=== PATIENT | female | born 1985 | race Caucasian/White ===

== ENCOUNTER 2019-03-11 13:55 | Inpatient (IN) ==
[2019-03-11] MEDS ORDERED: LACTATED RINGERS 1,000 ML IV ONE (14:56)
[2019-03-11] MEDS ORDERED: ONDANSETRON 4 MG/2 ML VIAL IV ONE (14:57)
[2019-03-11 15:43] LABS: Basophils % 0.3 % (0.0-0.8); Eosinophils # 0.1 10*3/uL (0.0-0.87); Eosinophils % 0.6 % (0.00-10.9); Hemoglobin 14.1 GM/DL (12.0-16.0); Immature Granulocytes % 0.4 %; Immature Granulocytes Absolute 0.07 #; Lymphocytes # 1.4 10*3/uL (1.4-4.0); Lymphocytes % 8.8 % (21.3-54.2); Mean Corpuscular HGB Conc 32.8 GM/DL (32-36); Mean Corpuscular Volume 86.5 FL (87-102); Mean Platelet Volume 10.3 FL (9.6-12.0); Monocytes % 4.2 % (1.7-12.7); Neutrophils % 85.7 % (38.7-73.9); Platelet Count 435 T/CUMM (130-400); Red Blood Count 4.97 MC/CUMM (3.8-5.5); Red Cell Distribution Width 14.3 % (9.3-17.3)
[2019-03-11] MEDS ORDERED: PROMETHAZINE INJ 25 MG in SODIUM CHLORIDE 0.9% 50 ML IV STA (15:50)
[2019-03-11 15:52] LABS: Apearance,Urine CLEAR (Clear); Bacteria,Urine Occasional /HPF (Few); Bilirubin,Urine Negative (Negative); Blood, Urine Negative (Negative); Glucose,Urine (UA) Negative (Negative); Ketones,Urine 20 mg/dL (Negative); Mucus,Urine Few /LPF (Occasional); Nitrite,Urine Negative (Negative); Protein,Urine Negative; RBC,Urine 5 /HPF (0-4); Squamous Epithelial Cell,Urine Occasional /HPF (0-10); Urine Color Yellow (Yellow); Urine Specific Gravity 1.018 (1.001-1.035); Urine Urobilinogen < 2.0 EU/DL (0.2-1.0); WBC,Urine 4 /HPF (0-6)
[2019-03-11] MEDS ORDERED: PROMETHAZINE 25 MG/1 ML VIAL ONE (15:52)
[2019-03-11 16:06] LABS: Albumin 3.7 G/DL (3.4-5.0); Bilirubin,Total 0.4 MG/DL (0.2-1.0); Osmolality,Calculated 282.1 MOS/KG (273-304); Total Protein 7.5 G/DL (6.4-8.3)
[2019-03-11] MEDS ORDERED: ACETAMINOPHEN 325 MG TABLET PO PRN (18:22)
[2019-03-11] MEDS ORDERED: PIPERACILLIN/TAZOBACTAM 3,375 MG in SODIUM CHLORIDE 0.9% 100 ML IV STA (18:23)
[2019-03-11] MEDS ORDERED: ONDANSETRON 4 MG/2 ML VIAL IV STA (18:23)
[2019-03-11] MEDS ORDERED: HYDROmorphone 2 MG/1 ML VIAL IV STA (18:23)
[2019-03-11] MEDS: LACTATED RINGERS 1,000 ML IV SCH (20:50)
[2019-03-12] MEDS: ONDANSETRON 4 MG/2 ML VIAL IV PRN ×4 (00:33→21:38)
[2019-03-12] MEDS ORDERED: MORPHINE 4 MG/1 ML VIAL IV PRN (00:47)
[2019-03-12] MEDS: PIPERACILLIN/TAZOBACTAM 3,375 MG in SODIUM CHLORIDE 0.9% 100 ML IV SCH ×3 (03:39→18:25)
[2019-03-12 05:15] LABS: Basophils % 0.2 % (0.0-0.8); Eosinophils % 0.1 % (0.00-10.9); Hematocrit 42.6 VOL% (35.7-47.0); Hemoglobin 13.7 GM/DL (12.0-16.0); Immature Granulocytes % 0.8 %; Immature Granulocytes Absolute 0.14 #; Lymphocytes # 1.3 10*3/uL (1.4-4.0); Lymphocytes % 7.2 % (21.3-54.2); Mean Corpuscular HGB Conc 32.2 GM/DL (32-36); Mean Corpuscular Volume 87.5 FL (87-102); Neutrophils % 87.7 % (38.7-73.9); Platelet Count 397 T/CUMM (130-400); Red Blood Count 4.87 MC/CUMM (3.8-5.5); Red Cell Distribution Width 14.2 % (9.3-17.3)
[2019-03-12 05:34] LABS: Calcium 8.8 MG/DL (8.5-10.1); Osmolality,Calculated 273.7 MOS/KG (273-304)
[2019-03-12 06:28] LABS: Anisocytosis 1+; Band Neutrophils 3 % (0-10); Eosinophils 1 % (0-10); Lymphocytes 6 % (20-55); Segmented Neutrophils 89 % (50-85); Total Cells Counted 100
[2019-03-12 06:29] LABS: Platelet Estimate Adequate
[2019-03-12] MEDS: POTASSIUM CHLORIDE RIDER 10 MEQ in PREMIX 1 EACH IV PRN ×5 (06:31→20:23)
[2019-03-12] MEDS ORDERED: MIDAZOLAM 2 MG/2 ML VIAL IV ONE (07:35)
[2019-03-12] MEDS ORDERED: MIDAZOLAM 2 MG/2 ML VIAL ONE ×2 (07:37→09:37)
[2019-03-12] MEDS: LACTATED RINGERS 1,000 ML IV SCH ×4 (07:50→23:10)
[2019-03-12] MEDS ORDERED: TISSUE ADHESIVE 1 EACH APPLICATOR TOP ONE (07:59)
[2019-03-12] MEDS ORDERED: LIDOCAINE 1%/EPI INJ 20 ML VIAL ONE (08:00)
[2019-03-12] MEDS ORDERED: BUPIVACAINE MPF 0.25% /EPI 30 ML VIAL ONE (08:00)
[2019-03-12] MEDS: PANTOPRAZOLE 40 MG TABLET PO SCH (08:45)
[2019-03-12] MEDS ORDERED: KETOROLAC 10 MG TABLET PO PRN (09:26)
[2019-03-12] MEDS ORDERED: ALBUTEROL/IPRATROPIUM 3 ML NEB RESP TX PRN (09:26)
[2019-03-12] MEDS ORDERED: BISACODYL 5 MG TABLET PO PRN (09:26)
[2019-03-12] MEDS ORDERED: PROPOFOL 200 MG/20 ML VIAL IV ONE (09:36)
[2019-03-12] MEDS ORDERED: SEVOFLURANE 1 UNIT/15 MINUTE INH ONE (09:37)
[2019-03-12] MEDS ORDERED: ONDANSETRON 4 MG/2 ML VIAL ONE (09:37)
[2019-03-12] MEDS ORDERED: DEXAMETHASONE 4 MG/1 ML VIAL ONE (09:37)
[2019-03-12] MEDS ORDERED: fentaNYL 100 MCG/2 ML VIAL ONE ×2 (09:37→09:38)
[2019-03-12] MEDS ORDERED: KETOROLAC 30 MG/1 ML VIAL ONE (09:37)
[2019-03-12] MEDS ORDERED: SUCCINYLCHOLINE 200 MG/10 ML VIAL ONE (09:38)
[2019-03-12] MEDS ORDERED: ROCURONIUM 100 MG/10 ML VIAL IV ONE (09:38)
[2019-03-12] MEDS ORDERED: LACTATED RINGERS 1,000 ML IV ONE (09:38)
[2019-03-12] MEDS ORDERED: NEOSTIGMINE 10 MG/10 ML VIAL ONE (09:38)
[2019-03-12] MEDS ORDERED: PHENYLEPHRINE 1 MG/10 ML SYRINGE IV ONE (09:38)
[2019-03-12] MEDS ORDERED: ACETAMINOPHEN 1,000 MG/100 ML VIAL IV ONE (09:38)
[2019-03-12] MEDS ORDERED: GLYCOPYRROLATE 0.4 MG/2 ML VIAL ONE (09:38)
[2019-03-12] MEDS: MORPHINE 4 MG/1 ML VIAL IV PRN (21:39)
[2019-03-13] MEDS: POTASSIUM CHLORIDE RIDER 10 MEQ in PREMIX 1 EACH IV PRN ×3 (00:15→02:19)
[2019-03-13] MEDS: LACTATED RINGERS 1,000 ML IV SCH ×3 (02:32→16:45)
[2019-03-13] MEDS: PIPERACILLIN/TAZOBACTAM 3,375 MG in SODIUM CHLORIDE 0.9% 100 ML IV SCH ×3 (03:18→18:05)
[2019-03-13] MEDS: ONDANSETRON 4 MG/2 ML VIAL IV PRN (03:21)
[2019-03-13] MEDS: MORPHINE 4 MG/1 ML VIAL IV PRN (03:22)
[2019-03-13 04:49] LABS: Basophils % 0.1 % (0.0-0.8); Eosinophils % 0.1 % (0.00-10.9); Hemoglobin 12.1 GM/DL (12.0-16.0); Immature Granulocytes % 0.6 %; Lymphocytes # 2.7 10*3/uL (1.4-4.0); Lymphocytes % 16.1 % (21.3-54.2); Mean Corpuscular HGB Conc 32.7 GM/DL (32-36); Mean Corpuscular Volume 87.9 FL (87-102); Mean Platelet Volume 10.2 FL (9.6-12.0); Monocytes % 7.1 % (1.7-12.7); Platelet Count 370 T/CUMM (130-400); Red Blood Count 4.21 MC/CUMM (3.8-5.5); Red Cell Distribution Width 14.6 % (9.3-17.3)
[2019-03-13 05:49] LABS: Albumin 2.4 G/DL (3.4-5.0); Bilirubin,Total 1.1 MG/DL (0.2-1.0); Calcium 8.1 MG/DL (8.5-10.1); Osmolality,Calculated 276.4 MOS/KG (273-304)
[2019-03-13] MEDS: PANTOPRAZOLE 40 MG TABLET PO SCH (08:15)
[2019-03-14] MEDS: LACTATED RINGERS 1,000 ML IV SCH ×3 (02:30→10:30)
[2019-03-14] MEDS: PIPERACILLIN/TAZOBACTAM 3,375 MG in SODIUM CHLORIDE 0.9% 100 ML IV SCH ×2 (03:01→11:00)
[2019-03-14 05:48] LABS: Basophils # 0.1 10*3/uL (0.0-0.2); Basophils % 0.5 % (0.0-0.8); Eosinophils # 0.2 10*3/uL (0.0-0.87); Eosinophils % 2.3 % (0.00-10.9); Hematocrit 34.1 VOL% (35.7-47.0); Hemoglobin 11.1 GM/DL (12.0-16.0); Immature Granulocytes % 0.4 %; Immature Granulocytes Absolute 0.04 #; Lymphocytes # 3.7 10*3/uL (1.4-4.0); Lymphocytes % 39.3 % (21.3-54.2); Mean Corpuscular HGB Conc 32.6 GM/DL (32-36); Mean Corpuscular Volume 88.1 FL (87-102); Mean Platelet Volume 10.5 FL (9.6-12.0); Monocytes % 7.3 % (1.7-12.7); Neutrophils % 50.2 % (38.7-73.9); Platelet Count 310 T/CUMM (130-400); Red Blood Count 3.87 MC/CUMM (3.8-5.5); Red Cell Distribution Width 14.6 % (9.3-17.3); White Blood Count 9.3 T/CUMM (4-12)
[2019-03-14 06:12] LABS: Albumin 2.5 G/DL (3.4-5.0); Bilirubin,Total 0.8 MG/DL (0.2-1.0); Calcium 7.8 MG/DL (8.5-10.1); Osmolality,Calculated 280.1 MOS/KG (273-304); Total Protein 5.2 G/DL (6.4-8.3)
[2019-03-14] MEDS: POTASSIUM CHLORIDE RIDER 10 MEQ in PREMIX 1 EACH IV PRN ×2 (07:04→08:55)
[2019-03-14] MEDS: ONDANSETRON 4 MG/2 ML VIAL IV PRN (08:06)
[2019-03-14] MEDS: PANTOPRAZOLE 40 MG TABLET PO SCH (08:54)
[2019-03-14 11:14] VITALS: BP 100/58
== END 2019-03-14 12:40 | disposition home or self-care (01) | DRG 343 ==
LOC: N.ED 13:55 → N.EDINP 18:22 → N.3E 19:12
PROVIDERS: ADMIT Surgery; ATTEND Surgery

== ENCOUNTER 2019-09-18 03:02 | Observation (INO) ==
[2019-09-18] MEDS ORDERED: PANTOPRAZOLE 40 MG VIAL IV STA (03:31)
[2019-09-18] MEDS ORDERED: HYDROmorphone 2 MG/1 ML VIAL IV STA (03:31)
[2019-09-18] MEDS ORDERED: SODIUM CHLORIDE 0.9% 1,000 ML IV STA (03:31)
[2019-09-18] MEDS ORDERED: ONDANSETRON 4 MG/2 ML VIAL IV STA ×2 (03:31→09:50)
[2019-09-18 03:49] LABS: Basophils # 0.1 10*3/uL (0.0-0.2); Basophils % 0.4 % (0.0-0.8); Eosinophils # 0.1 10*3/uL (0.0-0.87); Eosinophils % 0.7 % (0.00-10.9); Hematocrit 41.1 VOL% (35.7-47.0); Hemoglobin 13.4 GM/DL (12.0-16.0); Immature Granulocytes % 0.4 %; Immature Granulocytes Absolute 0.05 #; Lymphocytes # 1.7 10*3/uL (1.4-4.0); Lymphocytes % 12.8 % (21.3-54.2); Mean Corpuscular HGB Conc 32.6 GM/DL (32-36); Mean Corpuscular Volume 85.4 FL (87-102); Mean Platelet Volume 9.9 FL (9.6-12.0); Monocytes % 4.3 % (1.7-12.7); Neutrophils % 81.4 % (38.7-73.9); Platelet Count 407 T/CUMM (130-400); Red Blood Count 4.81 MC/CUMM (3.8-5.5); Red Cell Distribution Width 13.7 % (9.3-17.3); White Blood Count 13.6 T/CUMM (4-12)
[2019-09-18 04:27] LABS: Apearance,Urine CLEAR (Clear); Bilirubin,Urine Negative (Negative); Blood, Urine Negative (Negative); Glucose,Urine (UA) 50 mg/dL (Negative); Ketones,Urine 80 mg/dL (Negative); Mucus,Urine Few /LPF (Occasional); Nitrite,Urine Negative (Negative); Protein,Urine 30 MG/DL; RBC,Urine 5 /HPF (0-4); Squamous Epithelial Cell,Urine Occasional /HPF (0-10); Urine Color Yellow (Yellow); Urine Specific Gravity 1.028 (1.001-1.035); Urine Urobilinogen < 2.0 EU/DL (0.2-1.0); WBC,Urine 6 /HPF (0-6)
[2019-09-18] MEDS ORDERED: cefTRIAXone 1,000 MG in SODIUM CHLORIDE 0.9% 100 ML IV STA (04:34)
[2019-09-18 04:53] LABS: Albumin 3.4 G/DL (3.4-5.0); Bilirubin,Total 0.4 MG/DL (0.2-1.0); Calcium 8.2 MG/DL (8.5-10.1); Total Protein 6.9 G/DL (6.4-8.3)
[2019-09-18] MEDS ORDERED: PROMETHAZINE 25 MG/1 ML VIAL ONE (06:09)
[2019-09-18] MEDS ORDERED: PROMETHAZINE 25 MG/1 ML VIAL IM STA (06:26)
[2019-09-18] MEDS ORDERED: ACETAMINOPHEN 325 MG TABLET PO PRN (07:34)
[2019-09-18] MEDS ORDERED: METOCLOPRAMIDE 10 MG/2 ML VIAL IV PRN (07:34)
[2019-09-18] MEDS ORDERED: MAGNESIUM SULF RIDER 2 GM in PREMIX 1 EACH IV PRN (07:38)
[2019-09-18] MEDS ORDERED: MAGNESIUM SULF RIDER 4 GM in PREMIX 1 EACH IV PRN (07:38)
[2019-09-18] MEDS ORDERED: ENOXAPARIN 40 MG/0.4 ML SYRINGE SUBCUT SCH (08:00)
[2019-09-18] MEDS ORDERED: PANTOPRAZOLE 40 MG TABLET PO SCH (09:00)
[2019-09-18] MEDS: ONDANSETRON 4 MG/2 ML VIAL IV PRN ×4 (10:04→21:28)
[2019-09-18 11:46] LABS: Barbiturates Screen,Urine Negative (Negative); Benzodiazepines Screen,Urine Negative (Negative); Cannabinoid Screen,Urine Positive (Negative); Opiate Screen,Urine Negative (Negative); Phencyclidine Screen,Urine Negative (Negative)
[2019-09-18] MEDS: SODIUM CHLOR 0.9% KCL 20 MEQ 20 MEQ/1,000 ML BAG IV SCH (12:35)
[2019-09-19] MEDS: SODIUM CHLOR 0.9% KCL 20 MEQ 20 MEQ/1,000 ML BAG IV SCH ×3 (00:54→08:57)
[2019-09-19 06:37] LABS: Basophils % 0.2 % (0.0-0.8); Eosinophils % 0.2 % (0.00-10.9); Hematocrit 39.1 VOL% (35.7-47.0); Hemoglobin 12.4 GM/DL (12.0-16.0); Immature Granulocytes % 0.7 %; Immature Granulocytes Absolute 0.11 #; Lymphocytes # 2.5 10*3/uL (1.4-4.0); Lymphocytes % 15.2 % (21.3-54.2); Mean Corpuscular HGB Conc 31.7 GM/DL (32-36); Mean Corpuscular Volume 86.9 FL (87-102); Mean Platelet Volume 10.5 FL (9.6-12.0); Monocytes % 7.5 % (1.7-12.7); Neutrophils % 76.2 % (38.7-73.9); Platelet Count 376 T/CUMM (130-400); Red Cell Distribution Width 14.3 % (9.3-17.3); White Blood Count 16.4 T/CUMM (4-12)
[2019-09-19] MEDS: ONDANSETRON 4 MG/2 ML VIAL IV PRN (06:43)
[2019-09-19 07:11] LABS: Albumin 2.8 G/DL (3.4-5.0); Bilirubin,Total 0.7 MG/DL (0.2-1.0); Calcium 7.6 MG/DL (8.5-10.1); Osmolality,Calculated 271.7 MOS/KG (273-304); Total Protein 6.4 G/DL (6.4-8.3)
[2019-09-19] MEDS ORDERED: PANTOPRAZOLE 40 MG TABLET PO SCH (09:00)
[2019-09-19 12:21] VITALS: BP 104/61
== END 2019-09-19 14:15 | disposition home or self-care (01) ==
LOC: N.EDINP 03:02 → N.ED 03:02 → SUATTDRO 07:34 → N.2W 10:14
PROVIDERS: ADMIT Internal Medicine; ATTEND Internal Medicine

== ENCOUNTER 2020-02-03 16:29 | Observation (INO) ==
[2020-02-03] MEDS ORDERED: SODIUM CHLORIDE 0.9% 1,000 ML IV STA (17:02)
[2020-02-03] MEDS ORDERED: ONDANSETRON 4 MG/2 ML VIAL IV STA (17:02)
[2020-02-03] MEDS ORDERED: HYDROmorphone 2 MG/1 ML VIAL IV STA (17:02)
[2020-02-03 17:43] LABS: Basophils % 0.2 % (0.0-0.8); Eosinophils # 0.1 10*3/uL (0.0-0.87); Eosinophils % 0.3 % (0.00-10.9); Hematocrit 43.8 VOL% (35.7-47.0); Hemoglobin 14.4 GM/DL (12.0-16.0); Immature Granulocytes % 0.6 %; Lymphocytes # 2.3 10*3/uL (1.4-4.0); Mean Corpuscular HGB Conc 32.9 GM/DL (32-36); Mean Corpuscular Volume 83.6 FL (87-102); Mean Platelet Volume 9.4 FL (9.6-12.0); Monocytes % 7.7 % (1.7-12.7); Neutrophils % 78.2 % (38.7-73.9); Platelet Count 580 T/CUMM (130-400); Red Blood Count 5.24 MC/CUMM (3.8-5.5); White Blood Count 17.9 T/CUMM (4-12)
[2020-02-03 18:05] LABS: Albumin 3.8 G/DL (3.4-5.0); Bilirubin,Total 0.8 MG/DL (0.2-1.0); Calcium 9.6 MG/DL (8.5-10.1); Osmolality,Calculated 268.1 MOS/KG (273-304); Total Protein 7.7 G/DL (6.4-8.3)
[2020-02-03 18:28] LABS: Apearance,Urine Slightly Hazy (Clear); Bilirubin,Urine Negative (Negative); Blood, Urine Negative (Negative); Glucose,Urine (UA) Negative (Negative); Ketones,Urine 20 mg/dL (Negative); Mucus,Urine Many /LPF (Occasional); Nitrite,Urine Negative (Negative); Protein,Urine 30 MG/DL; RBC,Urine 3 /HPF (0-4); Squamous Epithelial Cell,Urine Occasional /HPF (0-10); Urine Color Amber (Yellow); Urine Specific Gravity 1.027 (1.001-1.035); WBC,Urine 10 /HPF (0-6)
[2020-02-03] MEDS ORDERED: cefTRIAXone 1,000 MG in SODIUM CHLORIDE 0.9% 100 ML IV STA (18:53)
[2020-02-03] MEDS ORDERED: POTASSIUM CHLORIDE 20 MEQ TABLET PO STA (18:54)
[2020-02-03] MEDS ORDERED: PANTOPRAZOLE 40 MG VIAL IV ONE (22:42)
[2020-02-03] MEDS ORDERED: MAGNESIUM SULF RIDER 2 GM in PREMIX 1 EACH IV PRN (22:42)
[2020-02-03] MEDS ORDERED: MAGNESIUM SULF RIDER 4 GM in PREMIX 1 EACH IV PRN (22:42)
[2020-02-03] MEDS ORDERED: ONDANSETRON 4 MG/2 ML VIAL IV PRN (22:42)
[2020-02-03] MEDS ORDERED: POTASSIUM CHLORIDE RIDER 10 MEQ in PREMIX 1 EACH IV PRN (22:42)
[2020-02-03] MEDS: SODIUM CHLORIDE 0.9% 1,000 ML IV SCH (23:12)
[2020-02-03] MEDS: PROMETHAZINE INJ 25 MG in SODIUM CHLORIDE 0.9% 50 ML IV PRN (23:23)
[2020-02-03] MEDS: HYDROmorphone 2 MG/1 ML VIAL IV PRN (23:28)
[2020-02-04 05:14] LABS: Basophils # 0.1 10*3/uL (0.0-0.2); Basophils % 0.5 % (0.0-0.8); Eosinophils # 0.1 10*3/uL (0.0-0.87); Eosinophils % 0.8 % (0.00-10.9); Hematocrit 38.9 VOL% (35.7-47.0); Hemoglobin 12.6 GM/DL (12.0-16.0); Immature Granulocytes % 0.5 %; Immature Granulocytes Absolute 0.06 #; Lymphocytes # 4.3 10*3/uL (1.4-4.0); Lymphocytes % 34.6 % (21.3-54.2); Mean Corpuscular HGB Conc 32.4 GM/DL (32-36); Mean Corpuscular Volume 84.7 FL (87-102); Mean Platelet Volume 10.1 FL (9.6-12.0); Monocytes % 9.2 % (1.7-12.7); Neutrophils % 54.4 % (38.7-73.9); Platelet Count 410 T/CUMM (130-400); Red Blood Count 4.59 MC/CUMM (3.8-5.5); Red Cell Distribution Width 14.3 % (9.3-17.3); White Blood Count 12.5 T/CUMM (4-12)
[2020-02-04 05:29] LABS: Calcium 8.3 MG/DL (8.5-10.1); Osmolality,Calculated 278.3 MOS/KG (273-304)
[2020-02-04] MEDS: SODIUM CHLORIDE 0.9% 1,000 ML IV SCH ×3 (07:12→22:04)
[2020-02-04] MEDS: PROMETHAZINE INJ 25 MG in SODIUM CHLORIDE 0.9% 50 ML IV PRN ×2 (07:55→22:02)
[2020-02-04] MEDS: PANTOPRAZOLE 40 MG VIAL IV SCH (07:59)
[2020-02-04] MEDS ORDERED: propofoL 200 MG/20 ML VIAL IV ONE (09:00)
[2020-02-04] MEDS ORDERED: LIDOCAINE 2% 5 ML VIAL ONE (09:00)
[2020-02-04] MEDS: HYDROmorphone 2 MG/1 ML VIAL IV PRN ×2 (09:11→22:03)
[2020-02-04] MEDS ORDERED: LACTATED RINGERS 1,000 ML IV SCH (10:30)
[2020-02-04] MEDS ORDERED: cefTRIAXone 1,000 MG in SYRINGE 1 EACH IV SCH (18:00)
[2020-02-04] MEDS: POTASSIUM CHLORIDE 20 MEQ TABLET PO PRN ×2 (18:29→21:16)
[2020-02-05] MEDS: SODIUM CHLORIDE 0.9% 1,000 ML IV SCH (06:11)
[2020-02-05] MEDS: PANTOPRAZOLE 40 MG VIAL IV SCH (09:08)
[2020-02-05 09:22] VITALS: BP 111/72
== END 2020-02-05 12:19 | disposition home or self-care (01) ==
LOC: N.ED 16:29 → N.EDINP 16:29 → N.TELES 22:16
PROVIDERS: ADMIT Emergency Medicine; ATTEND Emergency Medicine

== ENCOUNTER 2020-02-11 09:44 | Observation (INO) ==
[2020-02-11] MEDS ORDERED: DIAZEPAM 5 MG TABLET PO ONE (10:10)
[2020-02-11] MEDS ORDERED: FAMOTIDINE 20 MG TABLET PO ONE (10:10)
[2020-02-11] MEDS ORDERED: DIAZEPAM 5 MG TABLET ONE (10:20)
[2020-02-11] MEDS ORDERED: FAMOTIDINE 20 MG TABLET ONE (10:20)
[2020-02-11] MEDS: LACTATED RINGERS 1,000 ML IV SCH ×2 (10:25→16:17)
[2020-02-11] MEDS ORDERED: TISSUE ADHESIVE 1 EACH APPLICATOR TOP ONE ×2 (11:52→15:09)
[2020-02-11] MEDS ORDERED: BUPIVACAINE 0.25% /EPI 10 ML VIAL ONE (11:52)
[2020-02-11] MEDS ORDERED: LIDOCAINE 1%/EPI INJ 20 ML VIAL ONE (11:52)
[2020-02-11] MEDS ORDERED: ceFAZolin 1,000 MG VIAL ONE (12:44)
[2020-02-11] MEDS ORDERED: BUPIVACAINE MPF 0.25% 30 ML VIAL ONE (15:11)
[2020-02-11] MEDS ORDERED: LIDOCAINE 2% 5 ML VIAL ONE (15:30)
[2020-02-11] MEDS ORDERED: SEVOFLURANE 1 UNIT/15 MINUTE INH ONE (15:30)
[2020-02-11] MEDS ORDERED: MIDAZOLAM 2 MG/2 ML VIAL ONE (15:30)
[2020-02-11] MEDS ORDERED: propofoL 200 MG/20 ML VIAL IV ONE (15:30)
[2020-02-11] MEDS ORDERED: PROMETHAZINE 25 MG/1 ML VIAL ONE (15:31)
[2020-02-11] MEDS ORDERED: fentaNYL 100 MCG/2 ML VIAL ONE ×2 (15:31)
[2020-02-11] MEDS ORDERED: PHENYLEPHRINE 1 MG/10 ML SYRINGE IV ONE (15:32)
[2020-02-11] MEDS ORDERED: GLYCOPYRROLATE 0.4 MG/2 ML VIAL ONE (15:32)
[2020-02-11] MEDS ORDERED: ONDANSETRON 4 MG/2 ML VIAL ONE ×2 (15:32→16:04)
[2020-02-11] MEDS ORDERED: DEXAMETHASONE 4 MG/1 ML VIAL ONE (15:32)
[2020-02-11] MEDS ORDERED: NEOSTIGMINE 10 MG/10 ML VIAL ONE (15:32)
[2020-02-11] MEDS ORDERED: LACTATED RINGERS 1,000 ML IV ONE (15:32)
[2020-02-11] MEDS ORDERED: KETOROLAC 30 MG/1 ML VIAL ONE (15:32)
[2020-02-11] MEDS ORDERED: ROCURONIUM 100 MG/10 ML VIAL IV ONE (15:32)
[2020-02-11] MEDS ORDERED: HYDROmorphone 2 MG/1 ML VIAL IV PRN (16:10)
[2020-02-11] MEDS ORDERED: ONDANSETRON 4 MG/2 ML VIAL IV PRN (16:10)
[2020-02-11] MEDS ORDERED: HYDROmorphone 2 MG/1 ML VIAL ONE (16:12)
[2020-02-11] MEDS ORDERED: SCOPOLAMINE 1.5 MG PATCH TRANSDERM ONE ×2 (17:04→17:10)
[2020-02-11] MEDS ORDERED: PROMETHAZINE INJ 25 MG in SODIUM CHLORIDE 0.9% 50 ML IV PRN (18:23)
[2020-02-11] MEDS ORDERED: DEXT 5% NACL 0.45% KCL 20 MEQ 20 MEQ/1,000 ML BAG IV SCH ×2 (18:30→19:30)
[2020-02-11] MEDS ORDERED: diphenhydrAMINE 50 MG/1 ML VIAL IV ONE (18:35)
[2020-02-11] MEDS ORDERED: diphenhydrAMINE 50 MG/1 ML VIAL ONE (18:39)
[2020-02-11] MEDS: ONDANSETRON 4 MG/2 ML VIAL IV PRN (19:41)
[2020-02-11] MEDS: PROMETHAZINE INJ 25 MG in SODIUM CHLORIDE 0.9% 50 ML IV PRN (23:00)
[2020-02-12] MEDS: ONDANSETRON 4 MG/2 ML VIAL IV PRN ×3 (04:54→22:09)
[2020-02-12] MEDS: MORPHINE 4 MG/1 ML VIAL IV PRN ×4 (05:01→22:10)
[2020-02-12] MEDS: PROMETHAZINE INJ 25 MG in SODIUM CHLORIDE 0.9% 50 ML IV PRN ×2 (07:24→16:48)
[2020-02-12] MEDS: DEXTROSE 5% NACL 0.45% 1,000 ML IV SCH ×2 (11:19→20:00)
[2020-02-13] MEDS: DEXTROSE 5% NACL 0.45% 1,000 ML IV SCH ×3 (02:36→18:38)
[2020-02-13] MEDS: MORPHINE 4 MG/1 ML VIAL IV PRN ×2 (03:09→11:27)
[2020-02-13] MEDS: ONDANSETRON 4 MG/2 ML VIAL IV PRN ×4 (03:09→21:02)
[2020-02-14] MEDS: PROMETHAZINE INJ 25 MG in SODIUM CHLORIDE 0.9% 50 ML IV PRN ×2 (00:19→13:22)
[2020-02-14] MEDS: MORPHINE 4 MG/1 ML VIAL IV PRN (00:21)
[2020-02-14] MEDS: DEXTROSE 5% NACL 0.45% 1,000 ML IV SCH ×2 (00:22→19:32)
[2020-02-14 06:26] LABS: Basophils # 0.1 10*3/uL (0.0-0.2); Basophils % 0.3 % (0.0-0.8); Eosinophils # 0.2 10*3/uL (0.0-0.87); Eosinophils % 1.3 % (0.00-10.9); Hematocrit 39.4 VOL% (35.7-47.0); Immature Granulocytes % 0.5 %; Immature Granulocytes Absolute 0.07 #; Lymphocytes # 2.2 10*3/uL (1.4-4.0); Lymphocytes % 15.3 % (21.3-54.2); Mean Corpuscular Volume 82.8 FL (87-102); Mean Platelet Volume 9.7 FL (9.6-12.0); Monocytes % 7.5 % (1.7-12.7); Neutrophils % 75.1 % (38.7-73.9); Platelet Count 397 T/CUMM (130-400); Red Blood Count 4.76 MC/CUMM (3.8-5.5); Red Cell Distribution Width 13.9 % (9.3-17.3); White Blood Count 14.3 T/CUMM (4-12)
[2020-02-14 06:49] LABS: Calcium 8.6 MG/DL (8.5-10.1); Osmolality,Calculated 266.2 MOS/KG (273-304)
[2020-02-14] MEDS: DEXT 5% NACL 0.45% KCL 20 MEQ 20 MEQ/1,000 ML BAG IV SCH (07:50)
[2020-02-14] MEDS: POTASSIUM CHLORIDE RIDER 10 MEQ in PREMIX 1 EACH IV PRN ×5 (07:59→19:30)
[2020-02-14] MEDS ORDERED: METOCLOPRAMIDE 10 MG/2 ML VIAL IV SCH (12:00)
[2020-02-14] MEDS: ONDANSETRON 4 MG/2 ML VIAL IV PRN (15:23)
[2020-02-14] MEDS: PANTOPRAZOLE 40 MG VIAL IV SCH ×2 (16:12→20:31)
[2020-02-14] MEDS: PROMETHAZINE INJ 25 MG in SODIUM CHLORIDE 0.9% 50 ML IV SCH ×2 (18:37→21:34)
[2020-02-14] MEDS: HYDROmorphone 2 MG/1 ML VIAL IV PRN (20:29)
[2020-02-15] MEDS: DEXT 5% NACL 0.45% KCL 20 MEQ 20 MEQ/1,000 ML BAG IV SCH (00:50)
[2020-02-15] MEDS: POTASSIUM CHLORIDE RIDER 10 MEQ in PREMIX 1 EACH IV PRN ×8 (00:52→18:37)
[2020-02-15] MEDS: PROMETHAZINE INJ 25 MG in SODIUM CHLORIDE 0.9% 50 ML IV SCH ×2 (02:54→06:22)
[2020-02-15] MEDS: PANTOPRAZOLE 40 MG VIAL IV SCH (09:04)
[2020-02-15] MEDS: PANTOPRAZOLE 40 MG TABLET PO SCH (18:37)
[2020-02-15] MEDS: ONDANSETRON 4 MG/2 ML VIAL IV PRN (21:46)
[2020-02-15] MEDS: HYDROmorphone 2 MG/1 ML VIAL IV PRN (21:47)
[2020-02-16] MEDS: POTASSIUM CHLORIDE RIDER 10 MEQ in PREMIX 1 EACH IV PRN ×5 (00:03→10:09)
[2020-02-16] MEDS: DEXT 5% NACL 0.45% KCL 20 MEQ 20 MEQ/1,000 ML BAG IV SCH ×2 (00:05→06:32)
[2020-02-16 06:02] LABS: Basophils # 0.1 10*3/uL (0.0-0.2); Basophils % 0.6 % (0.0-0.8); Eosinophils # 1.2 10*3/uL (0.0-0.87); Eosinophils % 10.1 % (0.00-10.9); Hematocrit 39.4 VOL% (35.7-47.0); Hemoglobin 12.7 GM/DL (12.0-16.0); Immature Granulocytes % 0.5 %; Immature Granulocytes Absolute 0.06 #; Lymphocytes # 3.2 10*3/uL (1.4-4.0); Lymphocytes % 27.8 % (21.3-54.2); Mean Corpuscular HGB Conc 32.2 GM/DL (32-36); Mean Corpuscular Volume 85.7 FL (87-102); Mean Platelet Volume 9.5 FL (9.6-12.0); Monocytes % 7.4 % (1.7-12.7); Neutrophils % 53.6 % (38.7-73.9); Platelet Count 425 T/CUMM (130-400); Red Cell Distribution Width 14.4 % (9.3-17.3); White Blood Count 11.6 T/CUMM (4-12)
[2020-02-16] MEDS: PANTOPRAZOLE 40 MG TABLET PO SCH (07:14)
[2020-02-16] MEDS ORDERED: POTASSIUM CHLORIDE 20 MEQ TABLET PO PRN (10:18)
[2020-02-16 11:56] VITALS: BP 121/72
== END 2020-02-16 16:52 | disposition home or self-care (01) ==
LOC: N.OR 09:44 → N.3E 09:44 → N.SDSINP 09:50 → N.3E 09:50 → N.OR 19:05 → N.SDSINP 19:14
PROVIDERS: ADMIT Surgery; ATTEND Surgery